=== PATIENT | female | born 1940 | race Caucasian/White ===

== ENCOUNTER → 2016-07-07 | Outpatient (CLI) | payer OTHER ==
--- NOTE | ~2016-07-07 | 2DMMODE ---
[facility] [address] [place] [address] 2 D/M-MODE ECHOCARDIOGRAM Name: PHILIP TORRES Room #: REG [facility]#: [id number] Admission: 07/07/16 Attend Phys: Jose Tinoco, Discharge: Date of : 44 Date of Service: 07/07/16 1408 Report #: [id number] THIS REPORT FOR: //name// APPROVED REPORT Study performed: 07/07/2016 12:14:36 EXAM: Comprehensive 2D, Doppler, and color-flow Echocardiogram Patient Location: Out-Patient Blood Pressure: 101/66 mmHg HR: 57 bpm Rhythm: NSR Other Information Study Quality: Good Indications Atrial Fibrillation 2D Dimensions RVDd: 36.88 mm LVEF(%): 59.67 (>50%) IVSd: 9.64 (7-11mm) LVOT Diam: 19.46 (18-24mm) LVDd: 48.96 mm PWd: 9.63 (7-11mm) Ascending Ao: 35.17 (22-36mm) LVDs: 33.39 (25-40mm) Aortic Root: 32.03 mm Rider's LVEF: 59.67 % Volumes Left Atrial Volume (Systole) Single Plane 4CH: 67.45 mL Single Plane 2CH: 66.86 mL LA ESV Index: 37.00 mL/m2 Aortic Valve AoV Peak Amrik.: 1.43 m/s AO Peak Gr.: 8.23 mmHg LVOT Max P.40 mmHg LVOT Max V: 1.26 m/s AI Vmax: 4.65 m/s AI Stoddard: 2.39 m/s2 AI PHT: 565.36 ms Mitral Valve [facility] [address] [place] [address] 2 D/M-MODE ECHOCARDIOGRAM Name: PHILIP TORRES Room #: [facility]#: [id number] Admission: 07/07/16 Attend Phys: Jose Tinoco, Discharge: Date of : 44 Date of Service: 07/07/16 1408 Report #: [id number] E/A Ratio: 2.4 MV Decel. Time: 179.48 ms MV E Max Amrik.: 0.97 m/s MV A Amrik.: 0.41 m/s MV PHT: 52.05 ms Pulmonary Valve PV Peak Amrik.: 0.90 m/s PV Peak Gr.: 3.27 mmHg Pulmonary Vein P Vein S: 39.1 m/s P Vein D: 60.1 m/s P Vein A Dur.: 23.9 m/s Tricuspid Valve TR Peak Amrik.: 2.76 m/s RAP Estimate: 10.00 mmHg TR Peak Gr.: 30.42 mmHg RVSP: 40.00 mmHg Left Ventricle The left ventricle is normal size. There is normal LV segmental wall motion. There is normal left ventricular wall thickness. Left ventricular systolic function is normal. LVEF is 55%. Grade III - reversible restrictive diastolic dysfunction. Right Ventricle The right ventricle is normal size. The right ventricular systolic function is normal. Atria Left atrium is mildly dilated. Right atrium is mildly dilated. Aortic Valve Aortic valve is mildly thickened and calcified. Mild aortic regurgitation. There is no aortic valvular stenosis. Mitral Valve The mitral valve is normal in structure. Mild to moderate mitral regurgitation. There is normal mitral valve excursion. Tricuspid Valve The tricuspid valve is normal in structure. There is moderate tricuspid regurgitation. The right atrial pressure is estimated at 10 mmHg. There is mild-moderate pulmonary hypertension with an estimated PAP of 40mmHg. Pulmonic Valve [address] [address] 2 D/M-MODE ECHOCARDIOGRAM Name: PHILIP TORRES Room #: REG [facility]#: [id number] Admission: 07/07/16 Attend Phys: Jose Tinoco, Discharge: Date of : 44 Date of Service: 07/07/16 1408 Report #: [id number] The pulmonary valve is normal in structure. Trace to mild pulmonic regurgitation. Great Vessels The aortic root is normal in size. The ascending aorta is normal in size. IVC is dilated and collapses <50% with inspiration. Pericardium There is no pericardial effusion. <Conclusion> The left ventricle is normal size. LVEF is 55%. Left atrium is mildly dilated. Right atrium is mildly dilated. Aortic valve is mildly thickened and calcified. Mild aortic regurgitation. The mitral valve is normal in structure. Mild to moderate mitral regurgitation. The tricuspid valve is normal in structure. There is moderate tricuspid regurgitation. The right atrial pressure is estimated at 10 mmHg. There is mild-moderate pulmonary hypertension with an estimated PAP of 40mmHg. The pulmonary valve is normal in structure. Trace to mild pulmonic regurgitation. <ELECTRONICALLY SIGNED> By: Mat Cardoza MD 07/07/16 1408 1408 1408 Mat Cardoza MD /INF
== END ==
LOC: CV 11:21
DX: I48.91 Unspecified atrial fibrillation (principal)

== ENCOUNTER → 2018-07-26 | Outpatient (CLI) | payer OTHER ==
--- NOTE | 2018-07-26 12:10 | 2DMMODE ---
[facility] [address] [place] [address] 2 D/M-MODE ECHOCARDIOGRAM Name: PHILIP TORRES Room #: REG [facility]#: [id number] ������������� Admission: 07/26/18 ������������� Attend Phys: Jose Tinoco, Discharge: ��� ������������� ��� Date of : 44 Date of Service: 07/26/18 1210 �� Report #: [id number] �������� ��������������������������������������������[id number] THIS REPORT FOR: //name// APPROVED REPORT Study performed: 07/26/2018 10:40:01 EXAM: Comprehensive 2D, Doppler, and color-flow Echocardiogram Patient Location: Out-Patient Room #: Echo lab 2 Status: routine BSA: 2.02 HR: 56 bpm BP: 124/74 mmHg Rhythm: Bradycardia Other Information Study Quality: Good Indications Atrial Fibrillation 2D Dimensions RVDd: 35.80 mm IVSd: 10.13 (7-11mm) LVOT Diam: 20.37 (18-24mm) LVDd: 51.18 mm PWd: 9.34 (7-11mm) Ascending Ao: 32.70 (22-36mm) LVDs: 37.48 (25-40mm) Aortic Root: 30.05 mm IVC: 30.00 mm Volumes Left Atrial Volume (Systole) Single Plane 4CH: 80.39 mL Single Plane 2CH: 82.93 mL LA ESV Index: 44.00 mL/m2 Aortic Valve AoV Peak Amrik.: 1.34 m/s AO Peak Gr.: 7.14 mmHg LVOT Max P.32 mmHg LVOT Max V: 1.04 m/s SUHAIL Vmax: 2.54 cm2 AI Vmax: 4.82 m/s AI [place]: 2.84 m/s2 AI PHT: 492.37 ms Mitral Valve [facility] [address] [address] 2 D/M-MODE ECHOCARDIOGRAM Name: PHILIP OTRRES Room #: [facility]#: [id number] ������������� Admission: 07/26/18 ������������� Attend Phys: Jose Tinoco, Discharge: ��� ������������� ��� Date of : 44 Date of Service: 07/26/18 1210 �� Report #: [id number] �������� ��������������������������������������������[id number] E/A Ratio: 3.3 MV Decel. Time: 179.26 ms MV E Max Amrik.: 1.17 m/s MV A Amrik.: 0.36 m/s MV PHT: 51.99 ms IVRT: 96.89 ms Pulmonary Valve PV Peak Amrik.: 1.03 m/s PV Peak Gr.: 4.26 mmHg IA End Vmax: 1.40 m/s Pulmonary Vein P Vein S: 0.32 m/s P Vein A: 0.18 m/s P Vein D: 0.73 m/s P Vein A Dur.: 101.5 msec P Vein S/D Ratio: 0.44 Tricuspid Valve TR Peak Amrik.: 3.14 m/s TR Peak Gr.: 39.52 mmHg PA Pressure: 50.00 mmHg Left Ventricle The left ventricle is normal size. There is normal LV segmental wall motion. There is normal left ventricular wall thickness. The left ventricular systolic function is normal. The left ventricular ejection fraction is within the normal range. LVEF is 55%. The left ventricular diastolic function is normal. Right Ventricle The right ventricle is normal size. The right ventricular systolic function is normal. Atria Left atrium is dilated. Right atrium is dilated. Aortic Valve The aortic valve is trleaflet, mildly sclerotic. Moderate aortic regurgitation. Mitral Valve The mitral valve is normal in structure. Mild to moderate mitral regurgitation. No evidence of mitral valve stenosis. Tricuspid Valve The tricuspid valve is normal in structure. There is moderate tricuspid regurgitation. Estimated PAP 50 mmHg. There is moderate [facility] [address] [place] [address] 2 D/M-MODE ECHOCARDIOGRAM Name: TORRESPHILIP Room #: REG CL [facility]#: [id number] ������������� Admission: 07/26/18 ������������� Attend Phys: Jose Tinoco, Discharge: ��� ������������� ��� Date of : 44 Date of Service: 07/26/18 1210 �� Report #: [id number] �������� ��������������������������������������������[id number] pulmonary hypertension. Pulmonic Valve The pulmonary valve is normal in structure. Mild pulmonic regurgitation. Great Vessels The aortic root is normal in size. IVC is dilated and collapses <50% with inspiration. Pericardium There is no pericardial effusion. <Conclusion> The left ventricular systolic function is normal. There is normal LV segmental wall motion. LVEF is 55%. Both atria are dilated. The aortic valve is trleaflet, mildly sclerotic. Moderate aortic regurgitation, no stenosis. The mitral valve is normal in structure. Mild to moderate mitral regurgitation. There is moderate tricuspid regurgitation. Estimated pulmonary artery pressure 50 mmHg. There is no pericardial effusion. ��������������������������������������������� <ELECTRONICALLY SIGNED> ���������������������������������������� By: Jose Tinoco MD, [facility] ��������������������������������������������� 07/26/18 121 09 09 Jose Tinoco MD, FACC /INF
== END ==
LOC: CV 07:31
DX: I08.8 Other rheumatic multiple valve diseases (principal); I48.0 Paroxysmal atrial fibrillation

== ENCOUNTER → 2019-08-15 | Outpatient (CLI) | payer OTHER | LOC: SJCVCIMAG 12:53 | PROVIDERS: ATTEND Internal Medicine | DX: I08.3 Combined rheumatic disorders of mitral, aortic and tricuspid valves (principal); I44.0 Atrioventricular block, first degree; R00.1 Bradycardia, unspecified; I48.0 Paroxysmal atrial fibrillation; I27.20 Pulmonary hypertension, unspecified; I11.9 Hypertensive heart disease without heart failure; G47.33 Obstructive sleep apnea (adult) (pediatric); Z79.899 Other long term (current) drug therapy; Z87.891 Personal history of nicotine dependence ==

== ENCOUNTER → 2019-12-14 | Outpatient (CLI) | payer OTHER | LOC: RAD 09:03 → NUC 11:09 → RAD 14:28 | PROVIDERS: ATTEND Internal Medicine | DX: I27.20 Pulmonary hypertension, unspecified (principal) ==

== ENCOUNTER → 2020-03-26 | Outpatient (CLI) | payer OTHER | LOC: SJCVC 13:02 | PROVIDERS: ATTEND Internal Medicine | DX: I44.0 Atrioventricular block, first degree (principal); R00.1 Bradycardia, unspecified; I11.9 Hypertensive heart disease without heart failure; I48.0 Paroxysmal atrial fibrillation; E78.5 Hyperlipidemia, unspecified; I27.20 Pulmonary hypertension, unspecified; G47.33 Obstructive sleep apnea (adult) (pediatric); Z79.899 Other long term (current) drug therapy; Z87.891 Personal history of nicotine dependence ==

== ENCOUNTER → 2020-07-10 | Outpatient (CLI) | payer OTHER | LOC: LAB 13:02 | PROVIDERS: ATTEND Internal Medicine | DX: Z20.822 Contact with and (suspected) exposure to COVID-19 (principal) ==

== ENCOUNTER → 2020-07-17 | Outpatient (CLI) | payer OTHER ==
--- NOTE | 2020-07-17 16:33 | 2DMMODE ---
[facility] [place] [address] 2 D/M-MODE ECHOCARDIOGRAM Name: PHILIP TORRES Room #: REG [facility]#: [id number] Admission: 07/17/20 Attend Phys: Casa Graham MD Discharge: Date of : 44 Report #: [id number] THIS REPORT FOR: cc: Physician not on staff Physician not on staff Jose Tinoco MD [facility] ~ APPROVED REPORT Study performed: 07/17/2020 13:33:16 EXAM: Comprehensive 2D, Doppler, and color-flow Echocardiogram Patient Location: Out-Patient Status: routine BSA: 1.99 HR: 63 bpm BP: 130/80 mmHg Rhythm: NSR, PACs Other Information Study Quality: Good Indications Dyspnea on exertion. Hx: Afib. 2D Dimensions RVDd: 35.24 mm IVSd: 9.77 (7-11mm) LVOT Diam: 19.74 (18-24mm) LVDd: 53.21 mm PWd: 8.96 (7-11mm) Ascending Ao: 34.76 (22-36mm) LVDs: 31.81 (25-40mm) Left Atrium: 42.71 (27-40mm) Aortic Root: 32.64 mm Volumes Left Atrial Volume (Systole) Single Plane 4CH: 69.28 mL Single Plane 2CH: 71.92 mL LA ESV Index: 38.00 mL/m2 Aortic Valve AoV Peak Amrik.: 1.73 m/s AO Peak Gr.: 11.99 mmHg LVOT Max P.33 mmHg LVOT Max V: 1.26 m/s [facility] [address] [address] 2 D/M-MODE ECHOCARDIOGRAM Name: PHILIP TORRES Room #: REG CL [facility]#: [id number] Admission: 07/17/20 Attend Phys: Casa Graham, Discharge: Date of : 44 Report #: [id number] SUHAIL Vmax: 2.22 cm2 AI Vmax: 4.65 m/s AI Caroline: 3.02 m/s2 AI PHT: 445.83 ms Mitral Valve E/A Ratio: 2.9 MV Decel. Time: 249.07 ms MV E Max Amrik.: 1.12 m/s MV A Amrik.: 0.38 m/s MV PHT: 72.23 ms IVRT: 50.75 ms Pulmonary Valve PV Peak Amrik.: 1.20 m/s PV Peak Gr.: 5.80 mmHg Pulmonary Vein P Vein S: 0.29 m/s P Vein D: 0.75 m/s P Vein S/D Ratio: 0.39 Tricuspid Valve TR Peak Amrik.: 3.55 m/s RAP Estimate: 10.00 mmHg TR Peak Gr.: 50.53 mmHg PA Pressure: 60.00 mmHg Left Ventricle The left ventricle is normal size. There is normal LV segmental wall motion. There is normal left ventricular wall thickness. Left ventricular systolic function is normal. LVEF is 60-65%. Severe diastolic dysfunction Right Ventricle The right ventricle is normal size. The right ventricular systolic function is normal. Atria Left atrium is moderately dilated. Right atrium is mildly dilated. Aortic Valve Aortic valve is trileaflet; mildly sclerotic. Moderate aortic regurgitation. There is no aortic valvular stenosis. Mitral Valve The mitral valve is normal in structure. Moderate mitral [facility] [address] [place] [address] 2 D/M-MODE ECHOCARDIOGRAM Name: PHILIP TORRES Room #: [facility] [id number] Admission: 07/17/20 Attend Phys: Casa Graham, Discharge: Date of : 44 Report #: [id number] regurgitation. Tricuspid Valve The tricuspid valve is normal in structure. Moderate tricuspid regurgitation. Estimated PAP is 55-60mmHg. Pulmonic Valve The pulmonary valve is normal in structure. Mild pulmonic regurgitation. Great Vessels The aortic root is normal in size. IVC is dilated and partially collapses with inspiration. Pericardium There is no pericardial effusion. <Conclusion> Left ventricular systolic function is normal. There is normal LV segmental wall motion. LVEF is 60-65%. Severe diastolic dysfunction Left atrium is moderately dilated. Aortic valve is trileaflet; mildly sclerotic. Moderate aortic regurgitation, no stenosis. The mitral valve is normal in structure. Moderate mitral regurgitation. Moderate tricuspid regurgitation. Estimated pulmonary artery pressure of 60mmHg. There is no pericardial effusion. <ELECTRONICALLY SIGNED> By: Jose Tinoco MD, [facility] 07/17/20 1633 [id number] Jose Tinoco MD, FAC /INF
== END ==
LOC: PUL 10:03 → CV 10:59 → PUL 11:19
PROVIDERS: ATTEND Internal Medicine
DX: I08.3 Combined rheumatic disorders of mitral, aortic and tricuspid valves (principal); R06.00 Dyspnea, unspecified; I27.20 Pulmonary hypertension, unspecified; I48.91 Unspecified atrial fibrillation

== ENCOUNTER → 2020-10-09 | Outpatient (CLI) | payer OTHER | LOC: SJCVCIMAG 07:32 | PROVIDERS: ATTEND Internal Medicine | DX: I45.10 Unspecified right bundle-branch block (principal); I49.1 Atrial premature depolarization; R07.89 Other chest pain; R06.00 Dyspnea, unspecified; I48.0 Paroxysmal atrial fibrillation; I10 Essential (primary) hypertension; E78.5 Hyperlipidemia, unspecified; I27.20 Pulmonary hypertension, unspecified; G47.33 Obstructive sleep apnea (adult) (pediatric); Z79.899 Other long term (current) drug therapy; Z87.891 Personal history of nicotine dependence ==

== ENCOUNTER → 2020-11-08 | Outpatient (CLI) | payer OTHER ==
--- NOTE | 2020-11-08 15:36 | 2DMMODE ---
[facility] [address] [address] 2 D/M-MODE ECHOCARDIOGRAM Name: MELISSAPHILIP SAHU Room #: REG [facility]#: [id number] Admission: 11/08/20 Attend Phys: Casa Graham MD Discharge: Date of : 44 Report #: [id number] THIS REPORT FOR: cc: Physician not on staff Physician not on staff Jose Tinoco MD [facility] ~ APPROVED REPORT Study performed: 11/08/2020 13:28:10 EXAM: Comprehensive 2D, Doppler, and color-flow Echocardiogram Patient Location: Out-Patient Room #: 2 Status: routine BSA: 1.99 HR: 62 bpm BP: 130/8 mmHg Rhythm: NSR Other Information Study Quality: Good Indications Pulmonary Hypertension 2D Dimensions IVSd: 7.55 (7-11mm) LVOT Diam: 19.48 (18-24mm) LVDd: 57.39 mm PWd: 7.95 (7-11mm) Ascending Ao: 30.72 (22-36mm) LVDs: 39.09 (25-40mm) Left Atrium: 43.64 (27-40mm) Aortic Root: 29.94 mm IVC: 30.00 mm Aortic Valve AoV Peak Amrik.: 1.45 m/s AO Peak Gr.: 8.44 mmHg AI Vmax: 4.47 m/s AI Charles: 2.68 m/s2 AI PHT: 482.88 ms Pulmonary Valve PV Peak Amrik.: 0.96 m/s PV Peak Gr.: 3.71 mmHg Tricuspid Valve [facility] [address] [address] 2 D/M-MODE ECHOCARDIOGRAM Name: PHILIP TORRES Room #: REG [facility]#: [id number] Admission: 11/08/20 Attend Phys: Casa Graham, Discharge: Date of : 44 Report #: [id number] TR Peak Amrik.: 3.43 m/s TR Peak Gr.: 47.00 mmHg PA Pressure: 57.00 mmHg Left Ventricle The left ventricle is normal size. There is normal LV segmental wall motion. There is normal left ventricular wall thickness. The left ventricular systolic function is normal. The left ventricular ejection fraction is within the normal range. LVEF is 60-65%. This study is not technically sufficient to allow evaluation of the LV diastolic function. Right Ventricle The right ventricle is normal size. The right ventricular systolic function is normal. Atria Left atrium is dilated. Right atrium is dilated. Aortic Valve The aortic valve is sclerotic. Moderate aortic regurgitation. There is no aortic valvular stenosis. Mitral Valve The mitral valve is normal in structure. Moderate mitral regurgitation. No evidence of mitral valve stenosis. Tricuspid Valve The tricuspid valve is normal in structure. There is moderate tricuspid regurgitation. Estimated PAP 55-60 mmHg. There is moderate pulmonary hypertension. Pulmonic Valve The pulmonary valve is normal in structure. Mild pulmonic regurgitation. Great Vessels The aortic root is normal in size. IVC is dilated and collapses <50% with inspiration. Pericardium There is no pericardial effusion. <Conclusion> The left ventricular systolic function is normal. There is normal LV segmental wall motion. [facility] [address] [address] 2 D/M-MODE ECHOCARDIOGRAM Name: SOTO TORRESNEIL HOLLOWAYIA Room #: REG CL [facility]#: [id number] Admission: 11/08/20 Attend Phys: Casa Graham, Discharge: Date of : 44 Report #: [id number] LVEF is 60-65%. Both atria are dilated. The aortic valve is sclerotic. Moderate aortic regurgitation, no stenosis. The mitral valve is normal in structure. Moderate mitral regurgitation. There is moderate tricuspid regurgitation. Estimated pulmonary artery pressure of 55-60 mmHg. There is no pericardial effusion. <ELECTRONICALLY SIGNED> By: Jose Tinoco MD, FACC 11/08/20 1535 1535 34 Jose Tinoco MD, FACC /INF
== END ==
LOC: CV 11-06 10:07
PROVIDERS: ATTEND Internal Medicine
DX: I08.8 Other rheumatic multiple valve diseases (principal); I27.20 Pulmonary hypertension, unspecified; G47.33 Obstructive sleep apnea (adult) (pediatric); I87.8 Other specified disorders of veins; I86.8 Varicose veins of other specified sites

== ENCOUNTER → 2021-04-16 | Outpatient (CLI) | payer OTHER | LOC: SJCVC 12:46 | PROVIDERS: ATTEND Internal Medicine | DX: I48.0 Paroxysmal atrial fibrillation (principal); I10 Essential (primary) hypertension; E78.5 Hyperlipidemia, unspecified; M19.90 Unspecified osteoarthritis, unspecified site; I27.20 Pulmonary hypertension, unspecified; G47.33 Obstructive sleep apnea (adult) (pediatric); Z96.641 Presence of right artificial hip joint; Z98.890 Other specified postprocedural states; Z79.899 Other long term (current) drug therapy ==

== ENCOUNTER → 2021-04-30 | Outpatient (CLI) | payer OTHER | LOC: SJCVC 11:03 | PROVIDERS: ATTEND Internal Medicine | DX: I48.0 Paroxysmal atrial fibrillation (principal); I10 Essential (primary) hypertension; E78.5 Hyperlipidemia, unspecified; I27.20 Pulmonary hypertension, unspecified; G47.33 Obstructive sleep apnea (adult) (pediatric); I08.0 Rheumatic disorders of both mitral and aortic valves; Z98.890 Other specified postprocedural states; Z87.891 Personal history of nicotine dependence; Z79.899 Other long term (current) drug therapy ==